=== PATIENT | female | born 1980 | race Caucasian/White ===

== ENCOUNTER 2024-08-11 13:35 | Outpatient (CLI) | payer OTHER, SELFPAY ==
--- NOTE | 2024-08-11 14:00 | CRLHL7_ITS ---
For Patients: As a result of the Century Cures Act, medical imaging exams and procedure reports are released immediately into your electronic medical record. You may view this report before your referring provider. If you have questions, please contact your health care provider. BILATERAL SCREENING MAMMOGRAM WITH COMPUTER-AIDED DETECTION AND TOMOSYNTHESIS TECHNIQUE: CC and MLO views were obtained. These mammographic images have been obtained using full-field digital technique. These mammographic images were interpreted with the benefit of computer-aided detection. Breast Tomosynthesis was used in this interpretation. COMPARISON FILM: 07/28/19. FINDINGS: The breasts are heterogeneously dense, which may obscure small masses IMPRESSION: There is no radiographic evidence for malignancy. ASSESSMENT: BI-RADS Category 1: Negative RECOMMENDATION: Routine screening mammogram in 1 year. A lay language report of this examination will be provided to the patient. Gage Cummings M.D. Diagnostic Radiologist [email or web address] ADITHYA/Dictated by: Gage Cummings MD @ 08/22/2024 11:02:00 AM (Electronically Signed)
== END 2024-08-11 13:36 | disposition home or self-care (01) ==
LOC: MAMMO 13:36
PROVIDERS: Visit Provider Physician Assistant
DX: Z12.31 Encounter for screening mammogram for malignant neoplasm of breast (principal); R92.333 Mammographic heterogeneous density, bilateral breasts; Z13.6 Encounter for screening for cardiovascular disorders; Z13.1 Encounter for screening for diabetes mellitus
CPT/HCPCS: 77063; 77067; 80061; 82947

== ENCOUNTER 2024-12-15 11:17 | Outpatient (CLI) | payer OTHER, SELFPAY | END 2024-12-15 11:18 | disposition home or self-care (01) | LOC: NFLDREF 11:19 | PROVIDERS: Visit Provider Registered Nurse | DX: K62.89 Other specified diseases of anus and rectum (principal); R10.30 Lower abdominal pain, unspecified | CPT/HCPCS: 80053 ==

== ENCOUNTER 2025-01-08 07:42 | Outpatient (CLI) | payer OTHER, SELFPAY ==
--- NOTE | 2025-01-08 09:19 | P.ANES_ITS ---
Anesthesia Charges Start Date/Time Anesthesia Start Date: 01/08/25 Anesthesia Start Time: 08:45 Stop Date/Time Anesthesia Stop Date: 01/08/25 Anesthesia Stop Time: 09:18 Coding CPT Codes CPT Codes: MELBA LWR INTST NDUT NOS - 08937 ([id number]) P1 - NORMAL HEALTHY PATIENT, QK - CAN MAKER 2-4 CNCRNT ANES PROC, QX - DIGITAL STRATEGY DIRECTOR SVC W/ MED DIRECTION
--- NOTE | 2025-01-08 09:19 | W.ANESCHARGE ---
Anesthesia Charges Start Date/Time Anesthesia Start Date: 01/08/25 Anesthesia Start Time: 08:45 Stop Date/Time Anesthesia Stop Date: 01/08/25 Anesthesia Stop Time: 09:18 Coding CPT Codes CPT Codes: MELBA LWR INTST NDKY NOS - 19841 ([id number]) P1 - NORMAL HEALTHY PATIENT, QK - IT TRAINEE 2-4 CNCRNT ANES PROC, QX - INNOVATIONS PARAPROFESSIONAL SVC W/ MED DIRECTION
--- NOTE | 2025-01-08 09:53 | P.ANES_ITS ---
Anesthesia Charges Start Date/Time Anesthesia Start Date: 01/08/25 Anesthesia Start Time: 08:45 Stop Date/Time Anesthesia Stop Date: 01/08/25 Anesthesia Stop Time: 09:18 Coding CPT Codes CPT Codes: MELBA LWR INTST NDPR NOS - [id number] ([id number]) P1 - NORMAL HEALTHY PATIENT, QK - SCOOPING MACHINE TENDER 2-4 CNCRNT ANES PROC, QX - BATTERY FILLER SVC W/ MED DIRECTION
--- NOTE | 2025-01-08 09:53 | W.ANESCHARGE ---
Anesthesia Charges Start Date/Time Anesthesia Start Date: 01/08/25 Anesthesia Start Time: 08:45 Stop Date/Time Anesthesia Stop Date: 01/08/25 Anesthesia Stop Time: 09:18 Coding CPT Codes CPT Codes: MELBA LWR INTST NDPA NOS - 29009 ([id number]) P1 - NORMAL HEALTHY PATIENT, QK - CROP PEST CONTROL SPECIALIST 2-4 CNCRNT ANES PROC, QX - MARKET SPECIALIST SVC W/ MED DIRECTION
== END 2025-01-08 07:43 | disposition home or self-care (01) ==
PROVIDERS: Visit Provider Surgery
DX: Z12.11 Encounter for screening for malignant neoplasm of colon (principal); K63.3 Ulcer of intestine
CPT/HCPCS: 00811; 45380; 88305; J2704

== ENCOUNTER 2025-04-20 12:20 | Outpatient (CLI) | payer OTHER, SELFPAY | END 2025-04-20 12:21 | disposition home or self-care (01) | LOC: NFLDREF 04-25 00:27 | PROVIDERS: Visit Provider Registered Nurse | DX: L65.9 Nonscarring hair loss, unspecified (principal) | CPT/HCPCS: 82728; 84443 ==